=== PATIENT | female | born 1985 | race Caucasian/White ===

== ENCOUNTER 2016-11-22 10:53 | Day surgery (SDC) | payer OTHER ==
[~2016-11-22] VITALS: Ht 160 cm; Wt 64.9 kg
[~2016-11-22 10:53] MED LIST: CLARITIN,ALAVAR10 MG PO; OMEPRAZOLE40 M1 PO
[2016-11-22 11:28] VITALS: BP 114/60
[2016-11-22] MEDS ORDERED: HYDROCODON-ACE1 EAC7 PO (14:50)
[2016-11-22] MEDS ORDERED: IBUPROFEN800 MG PO (14:50)
[2016-11-22 15:36] VITALS: BP 116/67
[2016-11-22 16:09] VITALS: BP 107/66
== END 2016-11-22 16:20 | disposition home or self-care (01) ==
LOC: SDC 10:53
PROC: 0UDB8ZX Extraction of Endometrium, Via Natural or Artificial Opening Endoscopic, Diagnostic (ICD-10-PCS; principal; 2016-11-22)
DX: N84.0 Polyp of corpus uteri (principal); N93.9 Abnormal uterine and vaginal bleeding, unspecified; R10.2 Pelvic and perineal pain; N94.10 Unspecified dyspareunia; R74.0 Nonspecific elevation of levels of transaminase and lactic acid dehydrogenase [LDH]; Z82.5 Family history of asthma and other chronic lower respiratory diseases; Z82.61 Family history of arthritis; Z80.1 Family history of malignant neoplasm of trachea, bronchus and lung; Z80.41 Family history of malignant neoplasm of ovary; Z83.3 Family history of diabetes mellitus; Z87.891 Personal history of nicotine dependence
CPT/HCPCS: 88305; J0131; J0330; J1100; J1885; J2175; J2250; J2405; J3010